=== PATIENT | male | born 1965 | race Caucasian/White ===

== ENCOUNTER 2018-11-17 16:50 | Emergency (ER) | payer BC ==
[2018-11-17] MEDS ORDERED: LIDOCAINE 1% MPF 5 ML VIAL ONE (18:03)
[2018-11-17] MEDS ORDERED: HYDROCODONE/APAP 10/325 TAB ONE (18:03)
--- NOTE | 2018-11-17 18:57 | EDPHYS ---
Physician Documentation [facility] Name: Cristobal Galo Age: 52 yrs Sex: Male : 1965 Arrival Date: 11/17/2018 Time: 16:53 Bed 23 Private MD: None, None ED Physician Tavo Quintana HPI: 11/17 18:47 This 52 yrs old Male presents to ER via Ambulatory with complaints of gs Puncture Wound To Hand, From Catfish. 18:47 The complaints affect the dorsal aspect of proximal phalanx of right little finger. The gs complaints affect the lateral aspect of left hand. Onset: The symptoms/episode began/occurred acutely, just prior to arrival. Modifying factors: the symptoms are aggravated by movement. Associated signs and symptoms: Pertinent positives: tingling distally. Severity of symptoms: At their worst the symptoms were moderate, in the emergency department the symptoms are unchanged. The patient has not experienced similar symptoms in the past. Historical: - Allergies: 17:05 No Known Allergies; aa5 - Home Meds: 17:05 None [Active]; aa5 - PMHx: 17:05 None; aa5 - PSHx: 17:05 Hernia repair; deviated nasal septum repair; elbow; uvulectomy; aa5 - Immunization history:: Last tetanus immunization: < 5 years ago. - Social history:: Smoking status: Patient/guardian denies using tobacco. - Ebola Screening: : No symptoms or risks identified at this time. ROS: 18:47 All other systems are negative. gs Exam: 18:47 Head/Face: Normocephalic, atraumatic. Cardiovascular: Regular rate and rhythm with a gs normal S1 and S2. No gallops, murmurs, or rubs. Normal PMI, no JVD. No pulse deficits. Respiratory: Lungs have equal breath sounds bilaterally, clear to auscultation and percussion. No rales, rhonchi or wheezes noted. No increased work of breathing, no retractions or nasal flaring. Abdomen/GI: Soft, non-tender, with normal bowel sounds. No distension or tympany. No guarding or rebound. No evidence of tenderness throughout. Neuro: Awake and alert, GCS 15, oriented to person, place, time, and situation. Cranial nerves II-XII grossly intact. Motor strength 5/5 in all extremities. Sensory grossly intact. Cerebellar exam normal. Normal gait. 18:47 Constitutional: The patient appears alert, awake, uncomfortable. 18:47 Musculoskeletal/extremity: Extremities: noted in the lateral aspect of left hand: puncture, morena present, ROM: intact in all extremities, Circulation is intact in all extremities. the dorsal aspect of proximal phalanx of right little finger Tingling of extremity. 18:47 Skin: injury, puncture(s). Vital Signs: 17:08 BP 138 / 93; Pulse 87; Resp 18; Temp 97.8; Pulse Ox 100% ; tl3 17:30 BP 134 / 79 LA; Pulse 86; Resp 18 S; Pulse Ox 96% on R/A; rv 18:00 BP 137 / 78 LA; Pulse 78; Resp 17 S; Pulse Ox 97% on R/A; rv 18:30 BP 129 / 68 LA; Pulse 75; Resp 17 S; Pulse Ox 97% on R/A; rv 19:00 BP 132 / 69 LA; Pulse 74; Resp 17 S; Pulse Ox 97% on R/A; rv Procedures: 18:47 Foreign Body Removal: catfish morena x 2, from the lateral aspect of left hand and dorsal gs aspect of proximal phalanx of right little finger, by using a hemostat, The patient tolerated the removal well. Nerve block: (digital) of r 5th finger. Medication: Lidocaine 1% without epinephrine Amount: 2 mls were injected, Effect: the patient's symptoms are improved, Performed by Tavo Quintana MD Patient tolerated well. MDM: 17:45 Patient medically screened. 18:47 Data reviewed: vital signs, nurses notes. Counseling: I had a detailed discussion with gs the patient and/or guardian regarding: the historical points, exam findings, and any diagnostic results supporting the discharge/admit diagnosis, the presence of at least one elevated blood pressure reading (>120/80) during this emergency department visit. Special discussion: I have referred the patient to see his PCP for further evaluation of high blood pressure. 11/17 17:46 Order name: Alma Rosa. Order: soak hands hot water; Complete Time: 17:54 gs Administered Medications: 17:55 Drug: [place] 10 mg-325 mg 1 tabs Route: PO; rv 19:17 Follow up: Response: Pain is decreased rv 19:00 Drug: KeFLEX 1000 mg Route: PO; rv 19:16 Follow up: Response: Medication administered at discharge. rv 19:00 Drug: Doxycycline 100 mg Route: PO; rv 19:16 Follow up: Response: Medication administered at discharge. rv Disposition: 11/17/18 18:56 Discharged to Home. 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 - Condition is Stable. - Discharge Instructions: Marine Life Injury, [id number], Managing Your Hypertension. - Prescriptions for Tylenol- Codeine #4 300-60 mg Oral Tablet - take 1 tablet by ORAL route every 6 hours As needed; 10 tablet. Doxycycline Hyclate 100 mg Oral Tablet - take 1 tablet by ORAL route 2 times per day; 10 tablet. Keflex 500 mg Oral Capsule - take 2 capsule by ORAL route every 12 hours .; 20 capsule. - Medication Reconciliation Form, Thank You Letter, Antibiotic Education, Prescription Opioid Use form. - Follow up: None, None; When: 2 - 3 days; Reason: Re-evaluation by your physician. Follow up: Private Physician; When: 2 - 3 days; Reason: Re-evaluation by your physician. Signatures: Sudha Pizarro RN RN aa5 Tavo Quintana MD MD Hernandez Solorzano RN RN Corrections: (The following items were deleted from the chart) 18:57 18:56 11/17/2018 18:56 Discharged to Home. Impression: Toxic effect of contact with gs other venomous marine animals. Condition is Stable. Forms are Medication Reconciliation Form, Thank You Letter, Antibiotic Education, Prescription Opioid Use. Follow up: None None; When: 2 - 3 days; Reason: Re-evaluation by your physician. 19:21 18:57 11/17/2018 18:56 Discharged to Home. Impression: Toxic effect of contact with rv other venomous marine animals. Condition is Stable. Forms are Medication Reconciliation Form, Thank You Letter, Antibiotic Education, Prescription Opioid Use. Follow up: Private Physician; When: 2 - 3 days; Reason: Re-evaluation by your physician.
--- NOTE | 2018-11-17 18:57 | ER ---
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 Transition of care: patient was not received from another setting of care. Onset of symptoms was November 17, 2018. Risk Assessment: Do you want to hurt yourself or someone else? Patient reports no desire to harm self or others. Initial Sepsis Screen: Does the patient meet any 2 criteria? No. Patient's initial sepsis screen is negative. Does the patient have a suspected source of infection? No. Patient's initial sepsis screen is negative. Care prior to arrival: None. 17:03 Method Of Arrival: Ambulatory aa5 17:03 Acuity: AYE 4 aa5 Historical: - Allergies: 17:05 No Known Allergies; aa5 - Home Meds: 17:05 None [Active]; aa5 - PMHx: 17:05 None; aa5 - PSHx: 17:05 Hernia repair; deviated nasal septum repair; elbow; uvulectomy; aa5 - Immunization history:: Last tetanus immunization: < 5 years ago. - Social history:: Smoking status: Patient/guardian denies using tobacco. - Ebola Screening: : No symptoms or risks identified at this time. Screenin:24 Abuse screen: Denies threats or abuse. Denies injuries from another. Nutritional rv screening: No deficits noted. Tuberculosis screening: No symptoms or risk factors identified. Fall Risk None identified. Assessment: 17:09 General: Appears in no apparent distress. uncomfortable, Behavior is calm, cooperative. rv Pain: Complains of pain in right hand and left hand. Neuro: Level of Consciousness is awake, alert, obeys commands, Oriented to person, place, time, situation. Cardiovascular: Capillary refill < 3 seconds. Respiratory: Airway is patent. GI: No signs and/or symptoms were reported involving the gastrointestinal system. : No signs and/or symptoms were reported regarding the genitourinary system. EENT: No signs and/or symptoms were reported regarding the EENT system. Derm: Wound noted right hand and left hand Wound is puncture. Musculoskeletal: No signs and/or symptoms reported regarding the musculoskeletal system. Vital Signs: 17:08 BP 138 / 93; Pulse 87; Resp 18; Temp 97.8; Pulse Ox 100% ; tl3 17:30 BP 134 / 79 LA; Pulse 86; Resp 18 S; Pulse Ox 96% on R/A; rv 18:00 BP 137 / 78 LA; Pulse 78; Resp 17 S; Pulse Ox 97% on R/A; rv 18:30 BP 129 / 68 LA; Pulse 75; Resp 17 S; Pulse Ox 97% on R/A; rv 19:00 BP 132 / 69 LA; Pulse 74; Resp 17 S; Pulse Ox 97% on R/A; rv ED Course: 16:53 Patient arrived in ED. mr 16:54 None, None is Private Physician. mr 17:03 Arm band placed on. aa5 17:05 Triage completed. aa5 17:06 Tavo Quintana MD is Attending Physician. gs 17:24 Patient has correct armband on for positive identification. Bed in low position. Call rv light in reach. Side rails up X 1. Adult w/ patient. Pulse ox on. NIBP on. 18:55 None, None is Referral Physician. gs 18:57 Referral Physician role handed off by None, None gs 19:20 Assist provider with foreign body removal of fish bone from right left wound. using rv hemostats, Set up for procedure. Performed by Tavo Quintana MD Dressed with tape, Patient tolerated well. Patient did not have IV access during this emergency room visit. Administered Medications: 17:55 Drug: [place] 10 mg-325 mg 1 tabs Route: PO; rv 19:17 Follow up: Response: Pain is decreased rv 19:00 Drug: KeFLEX 1000 mg Route: PO; rv 19:16 Follow up: Response: Medication administered at discharge. rv 19:00 Drug: Doxycycline 100 mg Route: PO; rv 19:16 Follow up: Response: Medication administered at discharge. rv Outcome: 18:56 Discharge ordered by . gs 19:21 Discharged to home ambulatory. rv 19:21 Condition: good 19:21 Discharge instructions given to patient, Instructed on discharge instructions, follow up and referral plans. medication usage, wound care, Demonstrated understanding of instructions, follow-up care, medications, wound care, Prescriptions given X 3. 19:21 Patient left the ED. rv Signatures: Yessi Fonseca PizarroSudha aguilar, RN RN aa5 Tavo Quintana MD MD Jerrica Cutler RN RN tl3 Hernandez Solorzano RN RN rv
[2018-11-17] MEDS ORDERED: DOXYCYCLINE 100 MG CAP PO ONE (19:19)
[2018-11-17] MEDS ORDERED: CEPHALEXIN 250 MG CAP ONE (19:19)
== END 2018-11-17 19:21 | disposition home or self-care (01) ==
LOC: ER 16:50
PROC: 0JCK3ZZ Extirpation of Matter from Left Hand Subcutaneous Tissue and Fascia, Percutaneous Approach (ICD-10-PCS; principal; 2018-11-17)
DX: T63.591A Toxic effect of contact with other venomous fish, accidental (unintentional), initial encounter (principal); S61.247A Puncture wound with foreign body of left little finger without damage to nail, initial encounter
CPT/HCPCS: 64450; 99284